=== PATIENT | male | born 1950 | race Caucasian/White ===

== ENCOUNTER → 2017-01-30 | Outpatient (CLI) | payer MEDICARE, OTHER ==
[2014-11-24 11:58] VITALS: BP 137/67
[~2017-01-30] MED LIST: ASPI-482 PO; ATOR10TA60 PO; CALC-128 PO; CHOL10003 PO; CLOB15CR TP; FEBU40TA PO; FURO20TA3 PO; HYDR25TA PO; IPRA4AER IH; METO-239 PO; MULT-240 PO; MYCO500T PO; OMEP40CA5 PO; POTA20TA82 PO; TRAM50TA PO; TRIA0.25 PO; [UNRECOGNIZED DRUG - CODE] MC
--- NOTE | 2017-01-30 14:32 | KCIC ---
ANKLE BRACHIAL INDEX 01/30/2017 Indication: Lower leg claudication Comparison: None. Procedure: Arterial pressures are measured in the arms and ankles. Findings: . Right ankle: 98 mm Hg. Right arm: 112 mm Hg. Left ankle: 106 mm Hg. Left arm: 122 mm Hg. Right leg BEL: 0.88. Left leg BEL: 0.87. BEL interpretation: 0.96 and above Generally normal 0.81-0.95 Mild disease 0.51-0.80 Moderate disease 0.31-0.50 Moderate to severe disease 0.3 or below Severe disease Impression: 1. Right BEL 0.88 suggestive of mild disease. 2. Left BEL 0.87 suggestive of mild disease. LOWER EXTREMITY DUPLEX ARTERY ULTRASOUND Indication: Lower leg claudication Comparison: None. Procedure: Real-time grayscale, color flow Doppler, and Doppler spectral waveform analysis of the arterial system of the lower extremity is performed. Findings: Right lower extremity arteries: There is heavy, calcified plaque throughout the right lower extremity arterial system. Common femoral: Patent with triphasic waveforms 1 78 cm/s Proximal superficial femoral: Patent with monophasic waveforms 123 cm/s Deep femoral: Patent monophasic waveforms 91 cm/s Mid superficial femoral: Patent with slow monophasic waveforms 36 cm/s Distal superficial femoral: Occlusion. Popliteal: Patent with monophasic waveforms 53 cm/s Distal peroneal: Patent with monophasic waveforms 58 cm/s Peroneal: No identifiable flow. Mid posterior tibial: Patent with monophasic waveforms 45 cm/s Dorsalis pedis: Patent with monophasic waveforms 45 cm/s Anterior tibial: Patent with monophasic waveforms 39 cm/s Left lower extremity arteries: There is diffuse scattered plaque throughout the left lower extremity arterial system. Common femoral: Patent triphasic waveforms 102 cm/s Proximal superficial femoral: Patent monophasic waveforms 82 cm/s The femoral: Patent monophasic waveforms 115 cm/s Mid superficial femoral: Patent monophasic waveforms 58 cm/s Distal superficial femoral: Patent monophasic waveforms 88 cm/s Popliteal: Patent monophasic waveforms 32 cm/s Peroneal: No identifiable flow. Mid posterior tibial: Patent with monophasic waveforms 33 cm/s Distal posterior tibial: Patent with monophasic waveforms 24 cm/s Anterior tibial patent monophasic waveforms 66 cm/s Dorsalis pedis: Patent monophasic waveforms 60 cm/s IMPRESSION: 1. 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 2. Diffuse calcified plaque throughout the right lower survey arterial system with short segment visualized 50-70% stenosis of the common femoral artery with slow monophasic flow throughout the remainder of the right lower extremity arterial system suggestive of hemodynamically significant stenosis. 3. No identifiable flow in the right peroneal artery which may be due to very slow flow or occlusion. 4. Patent slow monophasic flow in the right anterior tibial dorsalis pedis arteries 5. Diffuse atherosclerotic plaque throughout the left lower extremity arterial system with patency throughout except for the peroneal artery which may be due to slow flow or occlusion. Electronically signed by: Carlton Trevino MD (01/30/2017 2:28 PM) [id number]
== END | disposition home or self-care (01) ==
LOC: KCIC US 09:36
PROVIDERS: ATTEND Podiatrist Foot & Ankle Surgery
DX: I70.203 Unspecified atherosclerosis of native arteries of extremities, bilateral legs (principal)
CPT/HCPCS: 93922; 93925

== ENCOUNTER → 2020-11-06 | Outpatient (CLI) | payer MEDICARE, OTHER ==
[2020-09-19 14:30] VITALS: BP 113/59
[~2020-11-06] MED LIST changes: -OMEP40CA5 PO; +OMEP40CA7 PO; +POTA20TA4 PO; -POTA20TA82 PO
--- NOTE | 2020-11-06 18:05 | RAD ---
EXAM: XR FOOT_RIGHT 3 VIEWS 11/06/2020 10:30 AM CLINICAL INDICATION: Right second toe redness, diabetic foot ulcer. COMPARISON: None TECHNIQUE: 3 views of the right foot. FINDINGS: The bones are diffusely demineralized. There is suspected cortical indistinctness at the t ip of the great toe distal phalanx. No acute fracture. There is mild degenerative joint disease of th e great toe MTP joint. Moderate degenerative joint disease of the midfoot with prominent dorsal osteo phytes. Small calcaneal enthesophytes. A distal tibial intramedullary nail is partially visualized. T here is diffuse soft tissue swelling. IMPRESSION: Suspect cortical indistinctness at the tip of the second toe distal phalanx, which may r eflect osteomyelitis. Electronically signed by: Norah Head MD (11/06/2020 6:03 PM) [id number]
--- NOTE | 2020-11-07 18:07 | RAD ---
Three-phase bone scan 10/29/2020 CLINICAL HISTORY: Right second toe pain, swelling and redness for one month. TECHNIQUE: After the intravenous administration of 26 mCi of Technetium 99m MDP, flow and immediate b lood pool images of both feet and ankles were obtained using the gamma camera. Delayed images were ob tained at 3 hours. FINDINGS: Comparison is made to radiographs of the right foot performed earlier the same day. Increased flow and blood pool is seen to the right foot when compared to the left. On the delayed alfredo ges increased activity is seen in the expected location of the distal phalanx of the right second toe . These findings would be consistent with osteomyelitis. IMPRESSION: Findings are seen consistent with osteomyelitis involving the distal phalanx of the right second toe. Electronically signed by: Ty Zarco MD (11/07/2020 6:04 PM) [id number]
== END ==
LOC: NM 09:55
PROVIDERS: ATTEND Family Medicine
DX: M19.071 Primary osteoarthritis, right ankle and foot (principal); M25.774 Osteophyte, right foot; L03.031 Cellulitis of right toe; M79.89 Other specified soft tissue disorders; E11.65 Type 2 diabetes mellitus with hyperglycemia
CPT/HCPCS: 73630; 78315; A9503

== ENCOUNTER 2020-11-12 08:14 | Outpatient (CLI) | payer MEDICARE, OTHER ==
[~2020-11-12] VITALS: Ht 180.3 cm; Wt 119.0 kg
[2020-11-12 08:43] VITALS: BP 102/60
[2020-11-12] MEDS ORDERED: LIDOCAINE WITH 8.4% SOD BICARB 3 ML DISP.SYRIN. ONE (08:53)
[2020-11-12] MEDS ORDERED: LIDOCAINE WITH 8.4% SOD BICARB 3 ML DISP.SYRIN. INJ ONE (09:15)
--- NOTE | 2020-11-12 09:33 | NUR ---
pt discharged from IR. discharge instructions reviewed with patient
--- NOTE | 2020-11-12 12:15 | RAD ---
Date: 11/12/2020 Exam: Fluoroscopic and ultrasound guided peripheral central venous catheter placement. Indication: Consent: The procedure was explained in its entirety to the patient or the patients designated repres entative by a member of the treatment team, including a discussion of the risks, benefits and commonl y accepted alternatives to the procedure, as well as the expected consequences of no therapy whatsoev er. Discussion of the risks included, but was not limited to, those that are most frequent and thos e that are rare but possibly severe or life-threatening, as well as the possibility of unforeseen com plications. Discussion: A timeout procedure was performed. The patient was prepped and draped using maximum sterile techniq ue, including the use of: Current guideline approved cutaneous antisepsis, a large sterile sheet to e stablish a sterile field. 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 1% lidoc mann was administered for local anesthesia. Ultrasound evaluation demonstrates a patent right basilic vein. Reference images were saved in the edical record. The selected vein was accessed using micropuncture technique. A guidewire was advanced centrally. The PICC line was cut to length, and advanced through a peel-away sheath such that it's tip resides at the cavoatrial junction. The peel-away sheath a sheath was removed. The catheter was s ecured in place. The catheter was found to flush and aspirate normally.. Sterile dressings were appli ed. No immediate complications were identified. Fluoroscopy time: 0.1 minutes Dose area product: 1 Gycm2 Impression: Successful placement of a right upper extremity PICC line Electronically signed by: En Roberto MD (11/12/2020 12:13 PM) [id number]
== END 2020-11-12 09:35 | disposition home or self-care (01) ==
LOC: INTRAD 08:14
PROVIDERS: ATTEND Family Medicine
DX: Z45.2 Encounter for adjustment and management of vascular access device (principal); M86.9 Osteomyelitis, unspecified; I25.10 Atherosclerotic heart disease of native coronary artery without angina pectoris; I10 Essential (primary) hypertension; E78.00 Pure hypercholesterolemia, unspecified; I48.91 Unspecified atrial fibrillation; G47.30 Sleep apnea, unspecified; M19.90 Unspecified osteoarthritis, unspecified site; E11.9 Type 2 diabetes mellitus without complications; M10.9 Gout, unspecified; Z85.828 Personal history of other malignant neoplasm of skin; Z90.49 Acquired absence of other specified parts of digestive tract; Z98.890 Other specified postprocedural states; Z79.82 Long term (current) use of aspirin; Z79.899 Other long term (current) drug therapy; Z88.1 Allergy status to other antibiotic agents
CPT/HCPCS: 36573; C1751; C1892; J3490; 77001